=== PATIENT | male | born 1965 | race Two or more races ===

== ENCOUNTER 2018-11-16 19:29 | Emergency (ER) | payer BC ==
[2018-11-16] MEDS ORDERED: Ketorolac 30 MG/ML SDV IM ONE (20:45)
[2018-11-16] MEDS ORDERED: Amoxicillin/Clavulanate K 875-125 MG Tab PO ONE (20:45)
--- NOTE | 2018-11-16 20:52 | EDM.PDOC ---
ED HPI GENERAL MEDICAL PROBLEM - General Chief Complaint: ENT Problem Stated Complaint: TOOTH PAIN Time Seen by Provider: 11/16/18 20:14 Source of Information: Reports: Patient, RN Notes Reviewed History Limitations: Reports: No Limitations - History of Present Illness INITIAL COMMENTS - FREE TEXT/NARRATIVE: Patient presents to the ED for the evaluation of tooth pain. He states that he recently had a tooth pulled last week , this is located in his lower left jaw. The patient has noticed some redness and swelling in this area. There is some tenderness with chewing. He states that he also has noticed some facial swelling and to his left cheek and some minor ear pain associated with this. He states that he does have bilateral ear tubes for issues with his ears. He denies any fevers, chills, nausea, vomiting or diarrhea, chest pain, or shortness of breath. He would rate his pain today at a 6 out of 10. Left Lower Tooth/Teeth Pain Score (Numeric/FACES): 6 - Related Data Allergies Allergy/AdvReac Type Severity Reaction Status Date / Time No Known Allergies Allergy Verified 11/16/18 20:12 Home Meds: Home Meds Amoxicillin/Clavulanate K [Augmentin 875-125 MG] 1 tab PO BID #14 tablet [Rx] Desvenlafaxine Succinate [Pristiq] 25 mg PO DAILY 11/16/18 [History] Omeprazole Magnesium [Prilosec Otc] 20 mg PO DAILY 11/16/18 [History] Valsartan 30 mg PO DAILY 11/16/18 [History] Past Medical History Cardiovascular History: Reports: Hypertension Musculoskeletal History: Reports: Back Pain, Chronic Psychiatric History: Reports: Anxiety - Past Surgical History Neurological Surgical History: Reports: Lumbar Spine Musculoskeletal Surgical History: Reports: Knee Replacement, ORIF, Shoulder Replacement, Shoulder Surgery, Other (See Below) Other Musculoskeletal Surgeries/Procedures:: back surgery Social & Family History - Family History Cardiac: Reports: Hypertension Endocrine/Metabolic: Reports: Diabetes, type II - Tobacco Use Smoking Status *Q: Current Every Day Smoker Years of Tobacco use: 35 Packs/Tins Daily: 0.5 - Caffeine Use Caffeine Use: Reports: Coffee - Recreational Drug Use Recreational Drug Use: No ED ROS ENT - Review of Systems Review Of Systems: See Below Constitutional: Reports: No Symptoms HEENT: Reports: Dental Pain, Ear Pain Respiratory: Reports: No Symptoms Cardiovascular: Reports: No Symptoms Endocrine: Reports: No Symptoms GI/Abdominal: Reports: No Symptoms : Reports: No Symptoms Musculoskeletal: Reports: No Symptoms Skin: Reports: No Symptoms Neurological: Reports: No Symptoms Psychiatric: Reports: No Symptoms Hematologic/Lymphatic: Reports: No Symptoms Immunologic: Reports: No Symptoms ED EXAM, ENT - Physical Exam Exam: See Below Exam Limited By: No Limitations General Appearance: Alert, WD/WN, No Apparent Distress Eye Exam: Bilateral Eye: EOMI, Normal Inspection Ears: Normal External Exam, Normal Canal, Hearing Grossly Normal, Normal TMs ( Bilateral ear tubes noted there is more drainage coming from the left ear.) Nose: Normal Inspection Mouth/Throat: Normal Inspection, Normal Lips, Normal Oropharynx, Dental Pain, Dental Tenderness (This is located on the left lower jaw). No: Bleeding, Dry Mucous Membrane, Pharyngeal Erythema, Throat Pain, Tongue Swelling Head: Atraumatic, Normocephalic Neck: Normal Inspection Respiratory/Chest: No Respiratory Distress, Lungs Clear, Normal Breath Sounds, No Accessory Muscle Use, Chest Non-Tender Cardiovascular: Normal Peripheral Pulses, Regular Rate, Rhythm, No Murmur GI/Abdominal: Normal Bowel Sounds, Soft, Non-Tender, No Distention Extremities: Normal Inspection, Normal Capillary Refill Neurological: Alert, Oriented, Normal Cognition, No Motor/Sensory Deficits Psychiatric: Normal Affect, Normal Mood Skin: Warm, Dry, Intact, Normal Color, No Rash Course - Vital Signs Last Recorded V/S: Last Vital Signs Temp 98.4 F 11/16/18 20:08 Pulse 60 11/16/18 20:08 Resp 16 11/16/18 20:08 BP 138/80 11/16/18 20:08 Pulse Ox 96 11/16/18 20:08 - Orders/Labs/Meds Meds: Medications Discontinued Medications Generic Name Dose Route Start Last Admin Trade Name Freq PRN Reason Stop Dose Admin Amoxicillin/Clavulanate Potassium 1 tab 11/16/18 20:45 Augmentin 875 Mg/125 Mg PO 11/16/18 20:46 ONETIME ONE Ketorolac Tromethamine 30 mg 11/16/18 20:45 Toradol IM 11/16/18 20:46 ONETIME ONE - Re-Assessments/Exams Free Text/Narrative Re-Assessment/Exam: 11/16/18 20:55 Patient presents to the ED for evaluation of tooth pain after an extraction. The area around the gums to look reddened and irritated with possible inflammation noted. Will give 1 dose of Augmentin in the ED and provide prescription for 7 day course of this. Note that he take Aleve for continuing pain, I did order 30 mg IM Toradol for pain relief tonight. Departure - Departure Time of Disposition: 20:46 Disposition: Home, Self-Care 01 Condition: Fair Clinical Impression: Tooth pain - Discharge Information *PRESCRIPTION DRUG MONITORING PROGRAM REVIEWED*: No *COPY OF PRESCRIPTION DRUG MONITORING REPORT IN PATIENT DIAMANTE: No Prescriptions: Amoxicillin/Clavulanate K [Augmentin 875-125 MG] 1 tab PO BID #14 tablet Referrals: Murali Austin MD [Primary Care Provider] - Additional Instructions: You have been evaluated in the ED today for your tooth pain. He has been given a prescription for Augmentin this is an antibiotic that it is pretty common for giving people diarrhea. Please start probiotic with this. Please take one tablet by mouth twice daily for 7 days or until gone. Please take one to 2 tabs Aleve every 12 hours as needed for pain relief. If pain is really not relieved by Aleve alone you may supplement with Tylenol/ ibuprofen 6 hours as needed. Please return to the ED if her symptoms change or worsen.
== END 2018-11-16 21:05 | disposition home or self-care (01) ==
LOC: JD.ED 19:29
DX: K08.89 Other specified disorders of teeth and supporting structures (principal); I10 Essential (primary) hypertension; F17.210 Nicotine dependence, cigarettes, uncomplicated; E11.9 Type 2 diabetes mellitus without complications; Z79.899 Other long term (current) drug therapy
CPT/HCPCS: 96372; 99282; A9270; J1885; 99283